=== PATIENT | male | born 1960 | race Caucasian/White ===

== ENCOUNTER → 2025-02-20 14:54 | Outpatient (REF) | payer BC, SELFPAY | LOC: RCS 14:54 | PROVIDERS: ATTENDING PHYSICIAN Internal Medicine Cardiovascular Disease; FAMILY PHYSICIAN Internal Medicine | DX: I25.10 Atherosclerotic heart disease of native coronary artery without angina pectoris (principal) | CPT/HCPCS: 93306 ==